=== PATIENT | male | born 1960 | race Caucasian/White ===

== ENCOUNTER 2018-06-20 11:50 | Emergency (ER) | payer OTHER ==
[~2018-06-20] VITALS: Ht 162.6 cm; Wt 60.0 kg
[2018-06-20 11:52] VITALS: Ht 162.6 cm; Wt 60.0 kg
[2018-06-20] MEDS ORDERED: BUTALB-APAP-CA1 EACH PO (11:53)
[2018-06-20] MEDS ORDERED: HYDROCODON-ACE1 EA10 PO (11:55)
[2018-06-20] MEDS ORDERED: IBUPROFEN800 MG PO (11:55)
[2018-06-20] MEDS ORDERED: XANAX1 MG PO (11:55)
[2018-06-20] MEDS ORDERED: LOTENSIN20 MG PO (11:56)
[2018-06-20 12:27] LABS: BASOPHILS 0.3 % (0-2); EOSINOPHILS 0.5 % (0-7); HEMATOCRIT 46.5 % (42.0-54.0); HEMOGLOBIN 16.2 g/dL (13.5-17.5); IMMATURE GRANULOCYTES 1.3 % (0-5); LYMPHOCYTES 18.9 % (15-50); MCH 35.1 pg (26.0-34.0); MCHC 34.8 g/dL (31.0-37.0); MCV 100.9 fL (80.0-100.0); MONOCYTES 8.1 % (2-11); NEUTROPHILS 70.9 % (40-80); PLATELET COUNT 277 10x3/uL (130-400); RBC 4.61 10x6/uL (4.20-6.10); RDW 13.4 % (11.5-14.5); WBC 7.9 10x3/uL (4.8-10.8)
[2018-06-20 12:39] LABS: ALBUMIN 3.7 g/dL (3.4-5.0); ALKALINE PHOSPHATASE 106 U/L (46-116); ALT (SGPT) 24 U/L (10-68); BILIRUBIN - TOTAL 0.48 mg/dL (0.2-1.3); CALC OSMOLALITY 273 mosm/kg (275-300); CALCIUM 8.7 mg/dL (8.5-10.1); CHLORIDE - SERUM 103 mmol/L (98-107); CREATININE - SERUM 0.8 mg/dL (0.6-1.3); GLUCOSE 101 mg/dL (74-106); POTASSIUM - SERUM 4.2 mmol/L (3.5-5.1); PROTEIN - SERUM 7.1 g/dL (6.4-8.2); SODIUM 138 mmol/L (136-145); UREA NITROGEN 8 mg/dL (7-18); eGFR NON AFRICAN AMERICAN > 90 mL/min (90-120)
[2018-06-20 14:08] VITALS: BP 124/78
== END 2018-06-20 14:07 | disposition home or self-care (01) ==
LOC: D.ER 11:50
PROVIDERS: Emergency Medicine
DX: R51 Headache (principal)

== ENCOUNTER → 2018-10-24 15:40 | Outpatient (CLI) | payer OTHER ==
[2018-06-20 11:52] VITALS: BMI 22.7
[~2018-10-24 15:40] MED LIST: BUTALB-APAP-CA1 EACH PO; HYDROCODON-ACE1 EA10 PO; IBUPROFEN800 MG PO; LOTENSIN20 MG PO; XANAX1 MG PO
== END | disposition home or self-care (01) ==
LOC: D.CT 15:40
PROVIDERS: ATTEND Nurse Practitioner Family
DX: R10.30 Lower abdominal pain, unspecified (principal)